=== PATIENT | male | born 1990 | race Caucasian/White ===

== ENCOUNTER 2021-05-06 12:23 | Emergency (ER) | payer OTHER ==
[2021-05-06] MEDS ORDERED: SODIUM CHLORIDE 0.9% 500 ML INFUS.BAG IV ONE (12:56)
[2021-05-06] MEDS ORDERED: MECLIZINE HCL 25 MG TABLET (FP) PO ONE (12:57)
[2021-05-06 13:04] VITALS: BP 130/90; PULSE 107; TEMP 98.3; BMI 35.5
[2021-05-06] MEDS ORDERED: KETOROLAC TROMETHAMINE 15 MG/ML VIAL IVPUSH ONE (13:15)
[2021-05-06] MEDS ORDERED: LIDOCAINE 5% TOPICAL PATCH TP ONE (13:15)
[2021-05-06] MEDS ORDERED: METOCLOPRAMIDE HCL 10 MG TABLET (FP) PO ONE (13:15)
[2021-05-06] MEDS ORDERED: LIDOCAINE 5% TOPICAL PATCH ONE (13:19)
[2021-05-06] MEDS ORDERED: KETOROLAC TROMETHAMINE 15 MG/ML VIAL ONE (13:19)
[2021-05-06] MEDS ORDERED: METOCLOPRAMIDE HCL INJECTION 10 MG/2 ML VIAL ONE (13:19)
[2021-05-06 13:44] LABS: BASO % 0.3 % (0-2.0); EOS % 3.7 % (0-4.5); HEMATOCRIT 45.5 % (35.4-49); HEMOGLOBIN 15.6 GM/dL (11.7-16.9); LYMPH % 12.9 % (8-40); MCH 29.4 pg (25.7-33.7); MCHC 34.2 g/dl (32.0-35.9); MEAN CELL VOLUME 85.9 fl (80-96); MEAN PLT VOLUME 8.6 fl (7.5-11.1); MONO % 7.7 % (3.8-10.2); NEUT % 75.4 % (42.8-82.8); PLATELET COUNT 224 10^3/uL (134-434); RDW 14.6 % (11.9-15.9); WHITE BLOOD COUNT 9.2 K/mm3 (4.0-10.0)
[2021-05-06] MEDS ORDERED: SODIUM CHLORIDE 1,000 ML IV ONE (13:45)
[2021-05-06 14:09] LABS: CALCIUM 9.6 mg/dL (8.5-10.1)
[2021-05-06 14:10] LABS: ALBUMIN 3.7 g/dl (3.4-5.0); BLOOD UREA NITROGEN 9.5 mg/dL (7-18)
[2021-05-06 14:13] LABS: CREATININE 0.8 mg/dL (0.55-1.3)
[2021-05-06 14:15] LABS: BILIRUBIN,TOTAL 0.7 mg/dL (0.2-1); TOT PROT 7.6 g/dl (6.4-8.2)
[2021-05-07] MEDS ORDERED: LIDOCAINE PATCH REMOVAL MC SCH (13:00)
== END 2021-05-06 15:27 | disposition home or self-care (01) ==
LOC: JER 12:23
DX: R07.89 Other chest pain (principal)
CPT/HCPCS: 36415; 71046-TC-FY; 80053; 80307; 82550; 84443; 84484; 85025; 93005; 93010; 99284-25